=== PATIENT | female | born 2000 | race Two or more races ===

== ENCOUNTER 2020-11-20 12:56 | Emergency (ER) | payer OTHER ==
[~2020-11-20] VITALS: Ht 167.6 cm; Wt 63.5 kg
[2020-11-20] MEDS ORDERED: PEPCID AC10 MG PO (18:53)
[2020-11-20] MEDS ORDERED: ACID REDUCER20 M1 PO (18:53)
== END 2020-11-20 19:34 | disposition home or self-care (01) ==
LOC: ER 12:56
DX: R14.3 Flatulence (principal)